=== PATIENT | male | born 1950 | race Caucasian/White ===

== ENCOUNTER 2021-10-29 14:40 | Emergency (ER) | payer OTHER ==
[2021-10-29 15:50] VITALS: TEMP 97.7; BMI 25.0
[2021-10-29] MEDS ORDERED: CASIRIVIMAB/IMDEVIMAB 10 ML in SODIUM CHLORIDE 100 ML IVPB ONE (16:07)
[2021-10-29 19:06] VITALS: BP 127/82; PULSE 76
== END 2021-10-29 19:06 | disposition home or self-care (01) ==
LOC: JCOVINFU 14:40
PROC: 3E033GC Introduction of Other Therapeutic Substance into Peripheral Vein, Percutaneous Approach (ICD-10-PCS; principal; 2021-10-29)
DX: U07.1 COVID-19 (principal)
CPT/HCPCS: 99284-25; M0240; Q0240